=== PATIENT | female | born 1940 | race Caucasian/White ===

== ENCOUNTER → 2017-09-05 | Outpatient (CLI) | payer MEDICARE | LOC: COL.VAS 10:35 | DX: I73.9 Peripheral vascular disease, unspecified (principal); L97.521 Non-pressure chronic ulcer of other part of left foot limited to breakdown of skin ==

== ENCOUNTER → 2017-10-18 | Outpatient (CLI) | payer MEDICARE, OTHER | LOC: COL.LAB 08:14 | DX: G60.9 Hereditary and idiopathic neuropathy, unspecified (principal) ==

== ENCOUNTER → 2017-10-24 | Outpatient (CLI) | payer MEDICARE, OTHER ==
[2017-10-24 11:51] LABS: FASTING GLUCOSE 106 mg/dL (70-110)
[2017-10-24 11:52] LABS: 1 HR GLUCOSE 204 mg/dL (90-160)
== END ==
LOC: COL.LAB 08:25
PROVIDERS: Internal Medicine Interventional Cardiology
DX: G60.9 Hereditary and idiopathic neuropathy, unspecified (principal)

== ENCOUNTER → 2017-11-14 | Outpatient (CLI) | payer MEDICARE, OTHER | LOC: COL.RAD 09:10 | DX: Z11.1 Encounter for screening for respiratory tuberculosis (principal); J84.10 Pulmonary fibrosis, unspecified ==

== ENCOUNTER → 2017-12-25 | Outpatient (CLI) | payer MEDICARE, OTHER ==
[2017-12-25 11:48] LABS: MEAN CELL VOLUME 103 fl (80.0-100.0); MEAN CORPUSCULAR HEMOGLOBIN 32 pg (27.0-31.0); MEAN CORPUSCULAR HGB CONC 31 g/dl (33.0-37.0); MEAN PLATELET VOLUME 11.2 fl (7.4-10.4); PLATELET COUNT 187 K/mm3 (130-400); RED BLOOD COUNT 3.41 M/mm3 (4.10-5.30); REDCELL DISTRIBUTION WIDTH-CV 12.8 % (11.5-14.5)
[2017-12-25 11:49] LABS: HEMATOCRIT 35.2 % (37.0-47.0)
[2017-12-25 11:53] LABS: CALCIUM 8.9 mg/dL (8.4-10.2)
[2017-12-25 11:59] LABS: CREATININE, serum 4.79 mg/dL (0.52-1.25)
== END ==
LOC: COL.LAB 11:12
PROVIDERS: Internal Medicine Interventional Cardiology
DX: I73.9 Peripheral vascular disease, unspecified (principal)

== ENCOUNTER → 2018-01-02 | Outpatient (CLI) | payer MEDICARE, OTHER | LOC: COL.RAD 13:49 | DX: M19.032 Primary osteoarthritis, left wrist (principal); I61.9 Nontraumatic intracerebral hemorrhage, unspecified; M81.0 Age-related osteoporosis without current pathological fracture; G31.9 Degenerative disease of nervous system, unspecified; I67.82 Cerebral ischemia; S00.03XA Contusion of scalp, initial encounter; W19.XXXA Unspecified fall, initial encounter ==

== ENCOUNTER → 2018-01-21 | Outpatient (CLI) | payer MEDICARE, OTHER | LOC: COL.LAB 15:16 | DX: G64 Other disorders of peripheral nervous system (principal) ==

== ENCOUNTER → 2018-01-28 | Outpatient (CLI) | payer MEDICARE, OTHER | LOC: COL.VAS 13:55 | DX: I65.22 Occlusion and stenosis of left carotid artery (principal); Z98.1 Arthrodesis status ==

== ENCOUNTER 2018-02-20 08:00 | Outpatient (RCR) | payer MEDICARE ==
[2018-02-20] VITALS (11 sets, daily range): BP systolic 80–125; BP diastolic 35–87; PULSE 67–92; TEMP 97.2–97.9
[~2018-02-20] VITALS: Ht 167.6 cm; Wt 96.2 kg
[2018-02-20] MEDS ORDERED: NEURONTIN300 MG/CAP PO (13:24)
[2018-02-20] MEDS ORDERED: ZYLOPRIM 100MG100 MG PO (13:25)
[2018-02-20] MEDS ORDERED: PLAVIX 75MG TAB75 MG PO (13:26)
[2018-02-20] MEDS ORDERED: ASPIRIN E.C. 8181 MG PO (13:27)
[2018-02-20] MEDS ORDERED: TURMERIC500 MG PO (13:28)
[2018-02-20] MEDS ORDERED: LIPITOR 80MG80 MG PO (13:28)
[2018-02-20] MEDS ORDERED: MASON NATURAL2000 IU (13:29)
[2018-02-20] MEDS ORDERED: ELIQUIS 2.5 PO (13:31)
== END 2018-02-20 16:07 | disposition home or self-care (01) ==
LOC: EUO 08:00
DX: D64.9 Anemia, unspecified (principal)
CPT/HCPCS: J7050; P9016

== ENCOUNTER 2018-03-03 12:25 | Inpatient (IN) | payer MEDICARE, OTHER ==
[~2018-03-03] VITALS: Ht 167.6 cm; Wt 98.7 kg
[2018-03-03] VITALS (11 sets, daily range): BP systolic 125–167; BP diastolic 47–90; PULSE 10–114; TEMP 97.3–99
[~2018-03-03 12:25] MED LIST: ASPIRIN E.C. 8181 MG PO; ELIQUIS 2.5 PO; LIPITOR 80MG80 MG PO; MASON NATURAL2000 IU; NEURONTIN300 MG/CAP PO; PLAVIX 75MG TAB75 MG PO; TURMERIC500 MG PO; ZYLOPRIM 100MG100 MG PO
[2018-03-03 13:04] LABS: ALBUMIN 3.3 gm/dL (3.5-5.0); BILIRUBIN,TOTAL 0.5 mg/dL (0.0-1.0); CALCIUM 8.9 mg/dL (8.4-10.2); POTASSIUM 4.3 mmol/L (3.4-5.0); TOTAL PROTEIN 5.9 gm/dL (6.4-8.2)
[2018-03-03 13:06] LABS: BASO % 0.2 % (0.0-2.0); EOS # 0.2 (0.0-0.7); EOS % 1.6 % (0-4.0); GRAN # 10.8 (1.4-6.5); GRAN % 86.5 % (42.2-75.2); LYMPH # 0.7 (1.2-3.4); LYMPH % 5.5 % (20.0-51.0); MEAN CELL VOLUME 116 fl (80.0-100.0); MEAN CORPUSCULAR HGB CONC 30 g/dl (33.0-37.0); MEAN PLATELET VOLUME 11.1 fl (7.4-10.4); MONO # 0.7 (0.1-0.6); MONO % 5.6 % (1.7-9.3); PLATELET COUNT 252 K/mm3 (130-400); RED BLOOD COUNT 2.02 M/mm3 (4.10-5.30); REDCELL DISTRIBUTION WIDTH-CV 16.2 % (11.5-14.5)
[2018-03-03 13:08] LABS: CREATININE, serum 4.71 mg/dL (0.52-1.25)
[2018-03-03 13:09] LABS: HEMATOCRIT 23.4 % (37.0-47.0); HEMOGLOBIN 7.1 g/dl (12.5-16.0); MEAN CORPUSCULAR HEMOGLOBIN 35 pg (27.0-31.0)
[2018-03-03 13:16] LABS: TROPONIN-I 0.034 ng/mL (0.000-0.034)
[2018-03-04 00:21] LABS: HEMATOCRIT 24.1 % (37.0-47.0)
[2018-03-04 03:18] VITALS: BP 102/44; BP 149/85; PULSE 70; PULSE 83; TEMP 98.7
[2018-03-04 06:38] LABS: BASO % 0.3 % (0.0-2.0); EOS # 0.3 (0.0-0.7); EOS % 2.7 % (0-4.0); GRAN % 80.7 % (42.2-75.2); LYMPH # 0.9 (1.2-3.4); LYMPH % 8.2 % (20.0-51.0); MEAN CORPUSCULAR HGB CONC 31 g/dl (33.0-37.0); MEAN PLATELET VOLUME 11.2 fl (7.4-10.4); MONO # 0.9 (0.1-0.6); MONO % 7.7 % (1.7-9.3); PLATELET COUNT 207 K/mm3 (130-400); RED BLOOD COUNT 2.17 M/mm3 (4.10-5.30)
[2018-03-04 06:43] LABS: CALCIUM 8.9 mg/dL (8.4-10.2); POTASSIUM 4.2 mmol/L (3.4-5.0)
[2018-03-04 06:47] LABS: HEMATOCRIT 23.9 % (37.0-47.0); HEMOGLOBIN 7.5 g/dl (12.5-16.0); MEAN CELL VOLUME 110 fl (80.0-100.0); MEAN CORPUSCULAR HEMOGLOBIN 35 pg (27.0-31.0)
[2018-03-04 06:56] LABS: CREATININE, serum 4.77 mg/dL (0.52-1.25)
[2018-03-04 07:23] VITALS: BP 136/56; PULSE 71; TEMP 98.2
[2018-03-04 12:30] VITALS: BP 130/64; PULSE 86; TEMP 98
[2018-03-04 17:01] VITALS: BP 112/53; PULSE 68; TEMP 98
[2018-03-04 20:20] VITALS: BP 122/38; PULSE 80; TEMP 98.6
[2018-03-05] VITALS (10 sets, daily range): BP systolic 91–150; BP diastolic 39–68; PULSE 71–93; TEMP 97.6–98.9
[2018-03-05 06:28] LABS: INR 1.3 (0.8-3.0); PROTHROMBIN TIME 14.3 SECONDS (9.7-12.8)
[2018-03-05 10:24] LABS: HEMATOCRIT 23.4 % (37.0-47.0); HEMOGLOBIN 7.3 g/dl (12.5-16.0)
[2018-03-05 10:29] LABS: CALCIUM 8.4 mg/dL (8.4-10.2); CREATININE, serum 3.37 mg/dL (0.52-1.25); POTASSIUM 4.1 mmol/L (3.4-5.0)
[2018-03-05 17:16] LABS: HEMATOCRIT 29.9 % (37.0-47.0); HEMOGLOBIN 9.4 g/dl (12.5-16.0)
[2018-03-06 01:24] VITALS: BP 127/46; PULSE 71; TEMP 98.2
[2018-03-06 04:29] VITALS: BP 126/46; PULSE 71; TEMP 97.7
[2018-03-06 07:24] VITALS: BP 133/44; PULSE 64; TEMP 97.9
== END 2018-03-06 12:00 | disposition home health service (06) | DRG 377 ==
LOC: COL.ER 12:25 → MEDICAL 14:01
PROVIDERS: Emergency Medicine; Internal Medicine; Internal Medicine Gastroenterology
PROC: 0DBK8ZX Excision of Ascending Colon, Via Natural or Artificial Opening Endoscopic, Diagnostic (ICD-10-PCS; 2018-03-04)
PROC: 0DBL8ZX Excision of Transverse Colon, Via Natural or Artificial Opening Endoscopic, Diagnostic (ICD-10-PCS; 2018-03-04)
PROC: 0DJ08ZZ Inspection of Upper Intestinal Tract, Via Natural or Artificial Opening Endoscopic (ICD-10-PCS; 2018-03-04 17:00)
PROC: 5A1D70Z Performance of Urinary Filtration, Intermittent, Less than 6 Hours Per Day (ICD-10-PCS; principal; 2018-03-05)
DX: K92.2 Gastrointestinal hemorrhage, unspecified (principal); N18.6 End stage renal disease; D50.0 Iron deficiency anemia secondary to blood loss (chronic); Z99.2 Dependence on renal dialysis; E78.5 Hyperlipidemia, unspecified; M10.9 Gout, unspecified; E11.22 Type 2 diabetes mellitus with diabetic chronic kidney disease; R53.1 Weakness; R74.8 Abnormal levels of other serum enzymes; D12.2 Benign neoplasm of ascending colon; D12.3 Benign neoplasm of transverse colon; K57.30 Diverticulosis of large intestine without perforation or abscess without bleeding
CPT/HCPCS: J2704; J7030; P9016

== ENCOUNTER → 2018-03-20 | Outpatient (CLI) | payer MEDICARE, OTHER ==
[~2018-03-20] MED LIST changes: +AMOXICILLIN 8751 TAB PO
[2018-03-20 11:30] LABS: GLUCOSE 99 mg/dL (74-106)
[2018-03-20 12:32] LABS: 2 HR GLUCOSE 216 mg/dL (70-110)
== END ==
LOC: COL.LAB 08:18
PROVIDERS: Family Medicine
DX: Z13.1 Encounter for screening for diabetes mellitus (principal); E53.8 Deficiency of other specified B group vitamins

== ENCOUNTER 2018-03-24 12:47 | Inpatient (IN) | payer MEDICARE, OTHER ==
[2018-03-24] VITALS (93 sets, daily range): BP systolic 121–127; BP diastolic 62–68; PULSE 71–85; TEMP 97.7; O2SAT 53–99
[~2018-03-24] VITALS: Ht 167.6 cm; Wt 95.2 kg
[~2018-03-24 12:47] MED LIST changes: -AMOXICILLIN 8751 TAB PO
[2018-03-24 13:15] LABS: HEMOGLOBIN 10.9 g/dl (12.5-16.0); MEAN CELL VOLUME 105 fl (80.0-100.0); MEAN CORPUSCULAR HEMOGLOBIN 33 pg (27.0-31.0); MEAN CORPUSCULAR HGB CONC 31 g/dl (33.0-37.0); MEAN PLATELET VOLUME 11.5 fl (7.4-10.4); PLATELET COUNT 209 K/mm3 (130-400); RED BLOOD COUNT 3.34 M/mm3 (4.10-5.30); REDCELL DISTRIBUTION WIDTH-CV 15.4 % (11.5-14.5)
[2018-03-24 13:27] LABS: ALBUMIN 3.5 gm/dL (3.5-5.0); BILIRUBIN,TOTAL 0.7 mg/dL (0.0-1.0); CALCIUM 9.6 mg/dL (8.4-10.2); MAGNESIUM 1.6 mg/dL (1.6-2.3); PHOSPHOROUS 0.8 mg/dL (2.5-4.5); POTASSIUM 3.9 mmol/L (3.4-5.0); TOTAL PROTEIN 6.3 gm/dL (6.4-8.2)
[2018-03-24 13:28] LABS: ARTERIAL BLD GAS O2 SATURATION 90.3 % (92-100); ARTERIAL BLD GAS TCO2 CT 22.4; ARTERIAL BLOOD GAS BASE EXCESS -4.3 (-2-2); ARTERIAL BLOOD GAS HCO3 21.2 meq/L (22-26); ARTERIAL BLOOD GAS PCO2 40.4 mmHg (35-45); ARTERIAL BLOOD GAS PO2 64.3 mmHg (80-100); ARTERIAL BLOOD GAS pH 7.34 (7.35-7.45)
[2018-03-24 13:34] LABS: HEMATOCRIT 35.1 % (37.0-47.0)
[2018-03-24 13:45] LABS: CREATININE, serum 4.49 mg/dL (0.52-1.25); TROPONIN-I 1.45 ng/mL (0.000-0.034)
[2018-03-24] MEDS ORDERED: AMOXICILLIN 8751 TAB PO ×2 (13:51)
[2018-03-24 13:58] LABS: BAND 22 % (0-10); LYMPHOCYTE 2 % (20.0-51.0); NEUTROPHILS 74 % (42.0-75.2)
[2018-03-24 13:59] LABS: PLATELET ESTIMATE NORMAL (NORMAL)
[2018-03-24 14:01] LABS: CREATINE KINASE 204 U/L (30-135)
[2018-03-24 14:02] LABS: HYPOCHROMIA 1+
[2018-03-24 14:10] LABS: COLLECTION METHOD CLEAN CATCH
[2018-03-24 14:21] LABS: MUCOUS Present /lpf; PH 5 (5-8); URINE APPEARANCE Clear; URINE BACTERIA None Seen /hpf; URINE BILIRUBIN Negative (NEGATIVE); URINE BLOOD Negative (NEGATIVE); URINE COLOR Yellow; URINE GLUCOSE Negative (NEGATIVE); URINE KETONE Negative (NEGATIVE); URINE LEUKOCYTE ESTERASE Negative (NEGATIVE); URINE NITRATE Negative (NEGATIVE); URINE PROTEIN(semi-quant) 2+ (NEGATIVE); URINE RBC None Seen /hpf; URINE UROBILINOGEN Negative (NEGATIVE)
[2018-03-25] VITALS (378 sets, daily range): BP systolic 105–125; BP diastolic 31–90; PULSE 70–85; TEMP 97.6–99.1; O2SAT 44–100
[2018-03-25 07:27] LABS: MEAN CELL VOLUME 106 fl (80.0-100.0); MEAN CORPUSCULAR HGB CONC 31 g/dl (33.0-37.0); MEAN PLATELET VOLUME 11.5 fl (7.4-10.4); PLATELET COUNT 149 K/mm3 (130-400); RED BLOOD COUNT 3.01 M/mm3 (4.10-5.30)
[2018-03-25 07:30] LABS: BILIRUBIN,TOTAL 0.6 mg/dL (0.0-1.0); CALCIUM 9.1 mg/dL (8.4-10.2); HEMATOCRIT 31.8 % (37.0-47.0); HEMOGLOBIN 9.8 g/dl (12.5-16.0); MEAN CORPUSCULAR HEMOGLOBIN 33 pg (27.0-31.0); POTASSIUM 4.9 mmol/L (3.4-5.0); TOTAL PROTEIN 5.6 gm/dL (6.4-8.2)
[2018-03-25 07:38] LABS: CREATININE, serum 4.61 mg/dL (0.52-1.25)
[2018-03-25 07:55] LABS: BAND 16 % (0-10); NEUTROPHILS 78 % (42.0-75.2)
[2018-03-25 07:59] LABS: PLATELET ESTIMATE NORMAL (NORMAL)
[2018-03-25 08:01] LABS: ANISOCYTOSIS 1+
[2018-03-26 00:11] VITALS: BP 136/47
[2018-03-26 04:05] VITALS: BP 110/44; PULSE 67; TEMP 97.8
[2018-03-26 06:28] LABS: BASO # 0.1 (0.0-0.2); BASO % 0.5 % (0.0-2.0); EOS # 0.5 (0.0-0.7); GRAN # 9.7 (1.4-6.5); GRAN % 81.2 % (42.2-75.2); LYMPH # 0.9 (1.2-3.4); LYMPH % 7.6 % (20.0-51.0); MEAN CELL VOLUME 105 fl (80.0-100.0); MEAN CORPUSCULAR HEMOGLOBIN 33 pg (27.0-31.0); MEAN CORPUSCULAR HGB CONC 31 g/dl (33.0-37.0); MEAN PLATELET VOLUME 11.8 fl (7.4-10.4); MONO # 0.8 (0.1-0.6); MONO % 6.4 % (1.7-9.3); PLATELET COUNT 169 K/mm3 (130-400); RED BLOOD COUNT 3.04 M/mm3 (4.10-5.30)
[2018-03-26 06:30] LABS: HEMATOCRIT 31.9 % (37.0-47.0)
[2018-03-26 06:36] LABS: BILIRUBIN,TOTAL 0.4 mg/dL (0.0-1.0); CALCIUM 8.9 mg/dL (8.4-10.2); CREATININE, serum 3.76 mg/dL (0.52-1.25); POTASSIUM 4.5 mmol/L (3.4-5.0); TOTAL PROTEIN 5.8 gm/dL (6.4-8.2)
[2018-03-26 08:06] VITALS: BP 136/34; PULSE 64; TEMP 97.8
[2018-03-26 11:44] VITALS: BP 107/49; PULSE 75; TEMP 98.5
[2018-03-26 15:22] VITALS: BP 107/49; PULSE 98; TEMP 97.7
[2018-03-26 20:20] VITALS: BP 130/56; PULSE 84; TEMP 98.2
[2018-03-27 00:17] VITALS: BP 143/67; PULSE 74; TEMP 98
[2018-03-27 03:38] VITALS: BP 128/53; PULSE 80; TEMP 97.9
[2018-03-27 06:00] LABS: BASO # 0.1 (0.0-0.2); BASO % 0.6 % (0.0-2.0); EOS # 0.5 (0.0-0.7); EOS % 5.8 % (0-4.0); GRAN % 72.3 % (42.2-75.2); LYMPH % 11.6 % (20.0-51.0); MEAN CELL VOLUME 102 fl (80.0-100.0); MEAN CORPUSCULAR HGB CONC 32 g/dl (33.0-37.0); MEAN PLATELET VOLUME 11.6 fl (7.4-10.4); MONO # 0.8 (0.1-0.6); MONO % 9.2 % (1.7-9.3); PLATELET COUNT 170 K/mm3 (130-400); RED BLOOD COUNT 3.03 M/mm3 (4.10-5.30)
[2018-03-27 06:07] LABS: HEMATOCRIT 30.9 % (37.0-47.0); HEMOGLOBIN 9.9 g/dl (12.5-16.0); MEAN CORPUSCULAR HEMOGLOBIN 33 pg (27.0-31.0)
[2018-03-27 06:31] LABS: ALBUMIN 3.1 gm/dL (3.5-5.0); BILIRUBIN,TOTAL 0.3 mg/dL (0.0-1.0); CALCIUM 8.7 mg/dL (8.4-10.2); POTASSIUM 4.4 mmol/L (3.4-5.0); TOTAL PROTEIN 5.8 gm/dL (6.4-8.2)
[2018-03-27 06:53] LABS: CREATININE, serum 4.43 mg/dL (0.52-1.25)
[2018-03-27 12:06] VITALS: BP 152/70; PULSE 80; TEMP 98.4
[2018-03-27 15:22] VITALS: BP 136/56; PULSE 82; TEMP 84
[2018-03-27 19:37] VITALS: BP 127/56; PULSE 78; TEMP 98.8
[2018-03-27 23:47] VITALS: BP 110/37; PULSE 85; TEMP 98
[2018-03-28 03:40] VITALS: BP 123/56; PULSE 78; TEMP 97.8
[2018-03-28 06:10] LABS: BASO # 0.1 (0.0-0.2); BASO % 0.8 % (0.0-2.0); EOS # 0.5 (0.0-0.7); EOS % 5.2 % (0-4.0); GRAN # 6.4 (1.4-6.5); GRAN % 69.7 % (42.2-75.2); HEMOGLOBIN 10.6 g/dl (12.5-16.0); LYMPH # 1.3 (1.2-3.4); LYMPH % 14.2 % (20.0-51.0); MEAN CELL VOLUME 102 fl (80.0-100.0); MEAN CORPUSCULAR HEMOGLOBIN 32 pg (27.0-31.0); MEAN CORPUSCULAR HGB CONC 31 g/dl (33.0-37.0); MEAN PLATELET VOLUME 11.5 fl (7.4-10.4); MONO # 0.8 (0.1-0.6); MONO % 9.1 % (1.7-9.3); PLATELET COUNT 190 K/mm3 (130-400); RED BLOOD COUNT 3.32 M/mm3 (4.10-5.30); REDCELL DISTRIBUTION WIDTH-CV 14.9 % (11.5-14.5)
[2018-03-28 06:13] LABS: HEMATOCRIT 33.9 % (37.0-47.0)
[2018-03-28 06:24] LABS: ALBUMIN 3.2 gm/dL (3.5-5.0); BILIRUBIN,TOTAL 0.4 mg/dL (0.0-1.0); CALCIUM 8.9 mg/dL (8.4-10.2); CREATININE, serum 3.62 mg/dL (0.52-1.25); PHOSPHOROUS 3.6 mg/dL (2.5-4.5); POTASSIUM 3.8 mmol/L (3.4-5.0)
[2018-03-28 08:03] VITALS: BP 131/59; PULSE 83; TEMP 98.4
[2018-03-28] MEDS ORDERED: LEVAQUIN 5500 MG/TA1 PO (10:38)
[2018-03-28] MEDS ORDERED: FOLIC ACID 11 MG/TA1 PO (10:39)
[2018-03-28 12:42] LABS: LAMDA FREE LIGHT CHAIN SERUM 7.01 mg/dL (())
== END 2018-03-28 15:10 | disposition home or self-care (01) | DRG 871 ==
LOC: COL.ER 12:47 → ICU 14:27 → MEDICAL 03-25 11:46
PROVIDERS: Emergency Medicine; Internal Medicine Nephrology
PROC: 5A1D70Z Performance of Urinary Filtration, Intermittent, Less than 6 Hours Per Day (ICD-10-PCS; principal; 2018-03-25)
PROC: 5A1D70Z Performance of Urinary Filtration, Intermittent, Less than 6 Hours Per Day (ICD-10-PCS; 2018-03-27)
PROC: 5A1D70Z Performance of Urinary Filtration, Intermittent, Less than 6 Hours Per Day (ICD-10-PCS; 2018-03-28)
DX: A41.9 Sepsis, unspecified organism (principal); N18.6 End stage renal disease; I21.A1 Myocardial infarction type 2; R65.21 Severe sepsis with septic shock; I12.0 Hypertensive chronic kidney disease with stage 5 chronic kidney disease or end stage renal disease; E87.2 Acidosis; E11.621 Type 2 diabetes mellitus with foot ulcer; B95.2 Enterococcus as the cause of diseases classified elsewhere; L97.529 Non-pressure chronic ulcer of other part of left foot with unspecified severity; E11.22 Type 2 diabetes mellitus with diabetic chronic kidney disease; Z99.2 Dependence on renal dialysis; E78.5 Hyperlipidemia, unspecified; E11.36 Type 2 diabetes mellitus with diabetic cataract; Z87.891 Personal history of nicotine dependence; D63.1 Anemia in chronic kidney disease; I27.20 Pulmonary hypertension, unspecified
CPT/HCPCS: J1956; J2543; J3370; J7040; J7050

== ENCOUNTER → 2018-04-24 | Outpatient (CLI) | payer MEDICARE, OTHER ==
[~2018-04-24] MED LIST changes: +AMOXICILLIN 8751 TAB PO; +FOLIC ACID 11 MG/TA1 PO; +LEVAQUIN 5500 MG/TA1 PO
== END ==
LOC: COL.RAD 09:42
DX: M19.012 Primary osteoarthritis, left shoulder (principal)

== ENCOUNTER → 2018-05-27 | Outpatient (CLI) | payer MEDICARE | LOC: COL.RAD 09:39 | DX: I65.23 Occlusion and stenosis of bilateral carotid arteries (principal); I65.02 Occlusion and stenosis of left vertebral artery; G31.9 Degenerative disease of nervous system, unspecified; I67.82 Cerebral ischemia; I63.81 Other cerebral infarction due to occlusion or stenosis of small artery; M47.812 Spondylosis without myelopathy or radiculopathy, cervical region; M43.12 Spondylolisthesis, cervical region; Z98.890 Other specified postprocedural states | CPT/HCPCS: Q9967 ==

== ENCOUNTER → 2018-07-10 | Outpatient (CLI) | payer MEDICARE | LOC: COL.RAD 08:00 | DX: G31.9 Degenerative disease of nervous system, unspecified (principal); I67.82 Cerebral ischemia; I65.02 Occlusion and stenosis of left vertebral artery; I65.22 Occlusion and stenosis of left carotid artery; I70.8 Atherosclerosis of other arteries | CPT/HCPCS: Q9967 ==

== ENCOUNTER 2018-07-23 22:20 | Emergency (ER) | payer MEDICARE ==
[~2018-07-23] VITALS: Ht 167.6 cm; Wt 93.2 kg
[2018-07-23 22:50] LABS: BASO # 0.1 (0.0-0.2); EOS # 0.2 (0.0-0.7); EOS % 3.4 % (0-4.0); GRAN # 4.3 (1.4-6.5); GRAN % 70.5 % (42.2-75.2); HEMOGLOBIN 11.1 g/dl (12.5-16.0); LYMPH # 0.8 (1.2-3.4); LYMPH % 12.4 % (20.0-51.0); MEAN CELL VOLUME 104 fl (80.0-100.0); MEAN CORPUSCULAR HEMOGLOBIN 32 pg (27.0-31.0); MEAN CORPUSCULAR HGB CONC 31 g/dl (33.0-37.0); MEAN PLATELET VOLUME 11.7 fl (7.4-10.4); MONO # 0.8 (0.1-0.6); MONO % 12.2 % (1.7-9.3); PLATELET COUNT 146 K/mm3 (130-400); RED BLOOD COUNT 3.43 M/mm3 (4.10-5.30); REDCELL DISTRIBUTION WIDTH-CV 14.6 % (11.5-14.5)
[2018-07-23 22:51] LABS: HEMATOCRIT 35.6 % (37.0-47.0)
[2018-07-23 22:56] LABS: ALBUMIN 3.5 gm/dL (3.5-5.0); BILIRUBIN,TOTAL 0.7 mg/dL (0.0-1.0); CALCIUM 9.1 mg/dL (8.4-10.2); CREATININE, serum 2.97 (0.52-1.25); MAGNESIUM 1.9 mg/dL (1.6-2.3); TOTAL PROTEIN 6.5 gm/dL (6.4-8.2)
[2018-07-24 00:35] VITALS: BP 124/76; PULSE 90; TEMP 97.9
== END 2018-07-24 00:35 | disposition short-term general hospital (02) ==
LOC: COL.ER 22:20
PROVIDERS: Emergency Medicine
DX: R09.02 Hypoxemia (principal); R53.1 Weakness; I12.0 Hypertensive chronic kidney disease with stage 5 chronic kidney disease or end stage renal disease; E11.22 Type 2 diabetes mellitus with diabetic chronic kidney disease; N18.6 End stage renal disease; I73.9 Peripheral vascular disease, unspecified; Z99.2 Dependence on renal dialysis; Z79.02 Long term (current) use of antithrombotics/antiplatelets; Z79.82 Long term (current) use of aspirin

== ENCOUNTER → 2018-12-15 | Outpatient (CLI) | payer MEDICARE, OTHER | LOC: COL.RAD 10:42 | DX: S92.415A Nondisplaced fracture of proximal phalanx of left great toe, initial encounter for closed fracture (principal) ==

== ENCOUNTER 2019-02-05 21:52 | Inpatient (IN) | payer MEDICARE ==
[~2019-02-05] VITALS: Ht 167.6 cm; Wt 97.3 kg
[2019-02-05 22:20] LABS: BASO # 0.1 (0.0-0.2); BASO % 0.5 % (0.0-2.0); EOS # 0.4 (0.0-0.7); EOS % 2.4 % (0-4.0); GRAN # 12.5 (1.4-6.5); GRAN % 85.9 % (42.2-75.2); HEMOGLOBIN 11.4 g/dl (12.5-16.0); LYMPH # 0.9 (1.2-3.4); MEAN CELL VOLUME 104 fl (80.0-100.0); MEAN CORPUSCULAR HEMOGLOBIN 32 pg (27.0-31.0); MEAN CORPUSCULAR HGB CONC 31 g/dl (33.0-37.0); MEAN PLATELET VOLUME 10.7 fl (7.4-10.4); MONO # 0.7 (0.1-0.6); MONO % 4.7 % (1.7-9.3); PLATELET COUNT 197 K/mm3 (130-400); RED BLOOD COUNT 3.54 M/mm3 (4.10-5.30); REDCELL DISTRIBUTION WIDTH-CV 12.6 % (11.5-14.5)
[2019-02-05 22:21] LABS: HEMATOCRIT 36.7 % (37.0-47.0)
[2019-02-05 22:27] LABS: ALBUMIN 3.8 gm/dL (3.5-5.0); BILIRUBIN,TOTAL 0.3 mg/dL (0.0-1.0); POTASSIUM 4.5 mmol/L (3.4-5.0); TOTAL PROTEIN 6.8 gm/dL (6.4-8.2)
[2019-02-05 22:31] LABS: CREATININE, serum 4.56 (0.52-1.25)
--- NOTE | 2019-02-06 00:25 | NUR ---
Recieved from ED per cart, 78y/o female with ESRD and fluid overload. Was unable to move herself from cart to bed, slide board was used. Has SL to right AC without redness or swelling. Has an AV fistula to left upper arm with bruit noted. Has a dry drsg to left groin, mild bruising around area post angiogram on 02/05/19. Snack provided.
--- NOTE | 2019-02-06 00:45 | NUR ---
Spoke with DR RAMIREZ regarding patient. New orders for FR 1500cc/24hr, Dialysis diet and okayed home meds.
[2019-02-06 00:49] VITALS: BP 102/38; PULSE 86; TEMP 97.6
--- NOTE | 2019-02-06 01:15 | NUR ---
Takes meds without problem. Has finished sandwich and applesauce. Ready for sleep.
[2019-02-06 04:00] VITALS: BP 93/43; PULSE 98; TEMP 98.2
--- NOTE | 2019-02-06 04:45 | NUR ---
ASSISTED TO BATHROOM WITH 1 STAFF MEMBER. GAIT SLOW AND STEADY. UNABLE TO URINATE AT THIS TIME. BACK TO BED WITH MINIMAL ASSIST. IS TO HAVE DIALYSIS THIS AM.
[2019-02-06 07:16] VITALS: BP 108/42; PULSE 88; TEMP 97.8
--- NOTE | 2019-02-06 08:20 | NUR ---
PATIENT GOING DOWN TO DIALYSIS.
--- NOTE | 2019-02-06 09:53 | NUR ---
Several visit attempts; Mandrel Puller left card letting patient know of the availability of [facility] at [place].
[2019-02-06 12:47] VITALS: BP 137/74; PULSE 83; TEMP 97.6
--- NOTE | 2019-02-06 13:00 | NUR ---
PATIENT BACK IN ROOM FROM DIALYSIS.
--- NOTE | 2019-02-06 13:27 | NUR ---
Checkerer Hand met with the patient to complete initial intake and discuss discharge planning. Patient's brother, Codey (ph#[phone]) was also present and states he lives just about 3 blocks away from patient. Patient lives alone in [place]. Patient sees Dr. Lowe for primary care and has her medications delivered to her home from [facility]. Patient reports independence with ADLS and has a walker at home to use as needed. Patient states she has Advance Directives in place and Codey is her DPOA-HC. Patient states she wants to return home upon discharge and has no concerns in doing so. No additional concerns at this time.
--- NOTE | 2019-02-06 13:42 | NUR ---
Patient sitting in bed watching tv, drinking a cup of coffee. Patient ate 100% of lunch. INT to Right AC remains CDI. Pain states no pain. Patient voices no other needs or concerns at this time. Reported off to KAITLIN Gudino.
[2019-02-06 16:33] VITALS: BP 104/37; PULSE 94; TEMP 97.7
--- NOTE | 2019-02-06 19:41 | NUR ---
IV SITE ACCIDENTALLY DC'D, DOES NOT WANT RESTART. DR ASHLEY MALONE DC OF TELEMETRY AND SALINE LOCK.
[2019-02-06 20:00] VITALS: BP 138/33; PULSE 93; TEMP 98.4
--- NOTE | 2019-02-06 21:00 | NUR ---
TAKES HS MEDS WITHOUT PROBLEM. NO COUGH NOTED, DID EXPLAIN TO PATIENT OF NEED FOR SPUTUM IF SHE COUGHS UP ANY MUCUS. PT VERBALIZED UNDERSTANDING.
[2019-02-07] VITALS (7 sets, daily range): BP systolic 104–148; BP diastolic 36–90; PULSE 78–98; TEMP 97.6–98.4
--- NOTE | 2019-02-07 05:28 | NUR ---
NO COUGH NOTED THIS SHIFT.
[2019-02-07 06:48] LABS: BASO # 0.1 (0.0-0.2); BASO % 0.5 % (0.0-2.0); EOS # 0.5 (0.0-0.7); EOS % 4.7 % (0-4.0); GRAN # 7.8 (1.4-6.5); HEMOGLOBIN 10.3 g/dl (12.5-16.0); LYMPH # 1.7 (1.2-3.4); LYMPH % 15.6 % (20.0-51.0); MEAN CELL VOLUME 102 fl (80.0-100.0); MEAN CORPUSCULAR HEMOGLOBIN 32 pg (27.0-31.0); MEAN CORPUSCULAR HGB CONC 31 g/dl (33.0-37.0); MEAN PLATELET VOLUME 11.4 fl (7.4-10.4); MONO % 8.6 % (1.7-9.3); PLATELET COUNT 163 K/mm3 (130-400); RED BLOOD COUNT 3.23 M/mm3 (4.10-5.30); REDCELL DISTRIBUTION WIDTH-CV 12.5 % (11.5-14.5)
[2019-02-07 06:55] LABS: ALBUMIN 3.5 gm/dL (3.5-5.0); CALCIUM 9.3 mg/dL (8.4-10.2); PHOSPHOROUS 4.3 mg/dL (2.5-4.5); POTASSIUM 4.4 mmol/L (3.4-5.0)
[2019-02-07 06:56] LABS: CREATININE, serum 4.17 (0.52-1.25)
[2019-02-07 07:19] LABS: HEMATOCRIT 32.8 % (37.0-47.0)
--- NOTE | 2019-02-07 08:00 | NUR ---
SEE MORNING ASSESSMENT.
--- NOTE | 2019-02-07 19:05 | NUR ---
REPORT GIVEN TO KAITLIN SIMMONS.
[2019-02-08 04:00] VITALS: BP 141/74; PULSE 72; TEMP 98.2
[2019-02-08 06:54] LABS: BASO # 0.1 (0.0-0.2); BASO % 0.7 % (0.0-2.0); EOS # 0.5 (0.0-0.7); EOS % 5.3 % (0-4.0); GRAN # 7.4 (1.4-6.5); GRAN % 73.1 % (42.2-75.2); HEMOGLOBIN 10.1 g/dl (12.5-16.0); LYMPH # 1.3 (1.2-3.4); LYMPH % 13.2 % (20.0-51.0); MEAN CELL VOLUME 101 fl (80.0-100.0); MEAN CORPUSCULAR HEMOGLOBIN 32 pg (27.0-31.0); MEAN CORPUSCULAR HGB CONC 32 g/dl (33.0-37.0); MEAN PLATELET VOLUME 11.3 fl (7.4-10.4); MONO # 0.7 (0.1-0.6); MONO % 7.1 % (1.7-9.3); PLATELET COUNT 161 K/mm3 (130-400); RED BLOOD COUNT 3.14 M/mm3 (4.10-5.30); REDCELL DISTRIBUTION WIDTH-CV 12.5 % (11.5-14.5)
[2019-02-08 07:01] LABS: HEMATOCRIT 31.8 % (37.0-47.0)
[2019-02-08 07:07] LABS: ALBUMIN 3.4 gm/dL (3.5-5.0); CALCIUM 9.2 mg/dL (8.4-10.2); CREATININE, serum 5.7 (0.52-1.25); PHOSPHOROUS 5.1 mg/dL (2.5-4.5); POTASSIUM 4.5 mmol/L (3.4-5.0)
--- NOTE | 2019-02-08 07:11 | NUR ---
PT INDEPENDENT IN ROOM. NO N/V. NO c/o PAIN.
--- NOTE | 2019-02-08 08:00 | NUR ---
PATIENT IS SITTING UP IN THE CHAIR THIS MORNING. PATIENT IS A&OX4. BRADYCARDIA NOTED, OTHERWISE VSS. BOWEL SOUNDS ACTIVE ALL FOUR QUADRANTS. PATIENT TOLERATING DIET WITHOUT ANY COMPLAINTS OF N/V. UPPER LUNG LOBES CLEAR UPON AUSCULTATION. FINE CRACKLES AUSCULTATED OVER BILATERALLY LUNG BASES. PATIENT DENIES SOB OR A PRODUCTIVE COUGH. AV FISTULA TO LUE. SCABBING OVER FISTULA SITE NOTED. GOOD BRUIT AND THRILL OVER AV FISTULA SITE. STRONG RADIAL PULSES EQUAL BILATERALLY. NON-PITTING EDEMA TO BUE. POSITIVE PEDAL PULSES EQUAL BILATERALLY. PATIENT DENIES ANY PAIN. CALL LIGHT WITHIN REACH. PATIENT DENIES ANY OTHER NEEDS AT THIS TIME.
[2019-02-08 08:13] VITALS: BP 152/66; PULSE 58; TEMP 98.1
[2019-02-08 12:25] VITALS: BP 132/44; PULSE 78; TEMP 97.8
[2019-02-08 16:00] VITALS: BP 147/69; PULSE 77; TEMP 98
--- NOTE | 2019-02-08 19:30 | NUR ---
REPORT GIVEN TO KAITLIN CHURCH.
[2019-02-08 20:00] VITALS: BP 119/38; PULSE 91; TEMP 98.4
[2019-02-09] VITALS: BP 123/50; PULSE 83; TEMP 98.4
--- NOTE | 2019-02-09 02:48 | NUR ---
patient doing well tonight. denies pain or need for pain medication. significant bruising noted to angiogram site. patient requested dressing to be changed, will relay this to morning shift. edema to bilateral upper extremities noted. patient ambulating independently in her room with the assistance of a walker. requested more xl briefs throughout night. see assessment. no further needs at this time. will continue to monitor.
[2019-02-09 04:00] VITALS: BP 131/60; PULSE 79; TEMP 98.1
[2019-02-09 07:06] LABS: BASO # 0.1 (0.0-0.2); BASO % 0.5 % (0.0-2.0); EOS # 0.5 (0.0-0.7); EOS % 4.5 % (0-4.0); GRAN # 8.3 (1.4-6.5); GRAN % 74.1 % (42.2-75.2); HEMOGLOBIN 10.2 g/dl (12.5-16.0); LYMPH # 1.5 (1.2-3.4); LYMPH % 13.1 % (20.0-51.0); MEAN CELL VOLUME 102 fl (80.0-100.0); MEAN CORPUSCULAR HEMOGLOBIN 32 pg (27.0-31.0); MEAN CORPUSCULAR HGB CONC 32 g/dl (33.0-37.0); MEAN PLATELET VOLUME 11.1 fl (7.4-10.4); MONO # 0.8 (0.1-0.6); MONO % 6.9 % (1.7-9.3); PLATELET COUNT 188 K/mm3 (130-400); RED BLOOD COUNT 3.17 M/mm3 (4.10-5.30); REDCELL DISTRIBUTION WIDTH-CV 12.5 % (11.5-14.5)
[2019-02-09 07:07] LABS: HEMATOCRIT 32.3 % (37.0-47.0)
[2019-02-09 07:25] VITALS: BP 143/53; PULSE 77; TEMP 97.9
[2019-02-09 07:28] LABS: ALBUMIN 3.6 gm/dL (3.5-5.0); PHOSPHOROUS 5.7 mg/dL (2.5-4.5); POTASSIUM 4.8 mmol/L (3.4-5.0)
[2019-02-09 07:39] LABS: CREATININE, serum 6.83 (0.52-1.25)
--- NOTE | 2019-02-09 08:15 | NUR ---
Patient in bed resting. Alert and oriented x 3. Shift assessment complete. Assisted patient to wheelchair, stand by assist with steady gait. Patient down to dialysis. Denies pain or further needs at this time.
[2019-02-09 12:23] VITALS: BP 126/49; PULSE 94; TEMP 97.4
--- NOTE | 2019-02-09 13:20 | NUR ---
Discharge education provided to patient. Educated on fluid restriction and follow up with dialysis. Denies pain or further needs at this time. Patient out by wheelchair with surgical staff and brother.
== END 2019-02-09 13:30 | disposition home or self-care (01) | DRG 640 ==
LOC: COL.ER 21:52 → SURG 22:49
PROVIDERS: Family Medicine; ADMIT Internal Medicine Nephrology
PROC: 5A1D70Z Performance of Urinary Filtration, Intermittent, Less than 6 Hours Per Day (ICD-10-PCS; principal; 2019-02-06)
DX: E87.70 Fluid overload, unspecified (principal); N18.6 End stage renal disease; I12.0 Hypertensive chronic kidney disease with stage 5 chronic kidney disease or end stage renal disease; Z99.2 Dependence on renal dialysis; E11.22 Type 2 diabetes mellitus with diabetic chronic kidney disease; E11.51 Type 2 diabetes mellitus with diabetic peripheral angiopathy without gangrene; E78.5 Hyperlipidemia, unspecified; E11.621 Type 2 diabetes mellitus with foot ulcer; M10.9 Gout, unspecified; E55.9 Vitamin D deficiency, unspecified; E11.42 Type 2 diabetes mellitus with diabetic polyneuropathy; Z79.02 Long term (current) use of antithrombotics/antiplatelets; Z79.82 Long term (current) use of aspirin; Z87.891 Personal history of nicotine dependence; Z88.8 Allergy status to other drugs, medicaments and biological substances
CPT/HCPCS: J0696; J1644; J7030

== ENCOUNTER 2019-03-31 10:03 | Outpatient (CLI) | payer MEDICARE, OTHER ==
[~2019-03-31] VITALS: Ht 167.6 cm; Wt 94.9 kg
[2019-03-31] MEDS ORDERED: FOLIC ACID 11 MG/TA1 PO (10:35)
[2019-03-31 10:40] VITALS: BP 141/57; PULSE 91; TEMP 97.8
== END 2019-03-31 10:41 | disposition home or self-care (01) ==
LOC: EUO 10:03
DX: M85.80 Other specified disorders of bone density and structure, unspecified site (principal)
CPT/HCPCS: J0897

== ENCOUNTER → 2019-07-29 | Outpatient (CLI) | payer MEDICARE, OTHER | LOC: ZCOL.LAB 10:12 | DX: Z03.818 Encounter for observation for suspected exposure to other biological agents ruled out (principal) ==

== ENCOUNTER 2020-06-01 18:40 | Inpatient (IN) | payer MEDICARE, OTHER ==
[~2020-06-01] VITALS: Ht 167.6 cm; Wt 97.7 kg
[2020-06-02] MEDS ORDERED: NORCO 325 MG-51 TAB PO (00:10)
[2020-06-02 00:24] VITALS: BP 113/50; PULSE 80; TEMP 98.3
--- NOTE | 2020-06-02 00:41 | NUR ---
5558-PT ADMIT FROM ER PER CART. SLIDE BOARD USED TO TRANSFER. NOT ORIENTATED TO SELF ONLY. PT GROGGY WILL WAKE BRIEFLY TO TALK AND THEN FALLS BACK ASLEEP DURING ASSESSMENT. DR ZAVALA CALLED FOR ORDERS, HE IS IN [employer] PLACING ORDERS. IV TO RT AC. LT ARM RESTRICTION, BANDED. PT IS A FALL RISK HAS HAD SEVERAL LAST IN LAST WEEK PER REPORT FROM ER NURSE. ROYA TO BECCA. BED IN LOW POSTION, CALL LIGHT W IN REACH. BED ALARM ON.
--- NOTE | 2020-06-02 04:21 | NUR ---
PT HAS BEEN RESTING W EYES CLOSED THROUGH OUT NIGHT. RESP EVEN AND UNLABORED.
[2020-06-02 05:19] VITALS: BP 111/50; PULSE 80; TEMP 97.9
--- NOTE | 2020-06-02 05:49 | NUR ---
PT AWAKE AND WANTING TO WATCH TV. SETTING UP IN BED, CALL LIGHT WI REACH.
[2020-06-02 08:29] LABS: COLLECTION METHOD CLEAN CATCH
[2020-06-02 09:04] VITALS: BP 148/58; PULSE 88; TEMP 98
--- NOTE | 2020-06-02 09:29 | NUR ---
Pt assessment complete. Pt is sitting up in bed upon entry, she is alert. Oriented to place and person but thinks its Rob. Reports mouth pain, some back pain, PRN Tylenol administered. Pt's breathing is even and unlabored on 3L O2 via NC. Pt denies SOB at this time. Attempting to order breakfast, currently NPO. Discussed with pt POC. No needs at this time. Call light within reach.
--- NOTE | 2020-06-02 10:07 | NUR ---
Initial visit; Patient confused, thanked Career Advisor for finding a nurse for her so she could order breakfast.
[2020-06-02 10:44] LABS: TRICYCLIC ANTIDEPRESS URINE NEGATIVE
[2020-06-02 10:45] LABS: PH 5 (5-8); URINE APPEARANCE Hazy; URINE COLOR Yellow; URINE GLUCOSE Negative (NEGATIVE); URINE PROTEIN(semi-quant) 2+ (NEGATIVE)
[2020-06-02 10:46] LABS: MUCOUS Present /lpf; URINE BACTERIA None Seen /hpf; URINE BILIRUBIN Negative (NEGATIVE); URINE BLOOD 2+ (NEGATIVE); URINE KETONE Negative (NEGATIVE); URINE LEUKOCYTE ESTERASE Trace (NEGATIVE); URINE NITRATE Negative (NEGATIVE); URINE UROBILINOGEN Negative (NEGATIVE)
[2020-06-02 10:50] LABS: TROPONIN-I 1.44 ng/mL (0.000-0.035)
[2020-06-02 10:51] LABS: CALCIUM 9.3 mg/dL (8.4-10.2); CREATININE, serum 7.11 (0.52-1.25); POTASSIUM 5.5 mmol/L (3.4-5.0)
[2020-06-02 10:52] LABS: ALBUMIN 4.5 gm/dL (3.5-5.0); TOTAL PROTEIN 7.6 gm/dL (6.4-8.2)
[2020-06-02 12:13] LABS: BASO # 0.1 (0.0-0.2); BASO % 0.4 % (0.0-2.0); EOS # 0.1 (0.0-0.7); EOS % 0.3 % (0-4.0); GRAN % 83.7 % (42.2-75.2); HEMOGLOBIN 11.6 g/dl (12.5-16.0); LYMPH # 1.5 (1.2-3.4); LYMPH % 8.1 % (20.0-51.0); MEAN CELL VOLUME 109 fl (80.0-100.0); MEAN CORPUSCULAR HEMOGLOBIN 33 pg (27.0-31.0); MEAN CORPUSCULAR HGB CONC 31 g/dl (33.0-37.0); MEAN PLATELET VOLUME 11.2 fl (7.4-10.4); MONO # 1.2 (0.1-0.6); MONO % 6.6 % (1.7-9.3); PLATELET COUNT 194 K/mm3 (130-400); REDCELL DISTRIBUTION WIDTH-CV 13.6 % (11.5-14.5)
--- NOTE | 2020-06-02 12:27 | NUR ---
Pt down to dialysis at this time.
[2020-06-02 13:14] LABS: BASO # 0.1 (0.0-0.2); BASO % 0.7 % (0.0-2.0); EOS # 0.3 (0.0-0.7); EOS % 2.1 % (0-4.0); GRAN % 80.6 % (42.2-75.2); LYMPH # 1.3 (1.2-3.4); LYMPH % 9.5 % (20.0-51.0); MEAN CELL VOLUME 105 fl (80.0-100.0); MEAN CORPUSCULAR HGB CONC 31 g/dl (33.0-37.0); MEAN PLATELET VOLUME 11.3 fl (7.4-10.4); MONO # 0.9 (0.1-0.6); MONO % 6.2 % (1.7-9.3); PLATELET COUNT 163 K/mm3 (130-400); RED BLOOD COUNT 3.01 M/mm3 (4.10-5.30); REDCELL DISTRIBUTION WIDTH-CV 13.3 % (11.5-14.5)
[2020-06-02 13:16] LABS: HEMATOCRIT 31.6 % (37.0-47.0); HEMOGLOBIN 9.8 g/dl (12.5-16.0); MEAN CORPUSCULAR HEMOGLOBIN 33 pg (27.0-31.0)
[2020-06-02 13:35] LABS: ALBUMIN 3.5 gm/dL (3.5-5.0); CALCIUM 8.7 mg/dL (8.4-10.2); CREATININE, serum 7.42 (0.52-1.25); PHOSPHOROUS 5.3 mg/dL (2.5-4.5); POTASSIUM 4.8 mmol/L (3.4-5.0)
--- NOTE | 2020-06-02 15:18 | NUR ---
Bench Assembly Inspector was not able to meet with patient as she was in dialysis. SW contacted patient's DPOA-HC/Brother, Codey (ph#[phone]) to discuss discharge planning. Patient lives alone in [place] and Codey reports he also lives in [facility]. Patient sees Dr. Dunlap for primary care and either uses [facility] or [facility] for her medications. Codey advised patient was recently set up at [facility] in case he ever needed to oyster picker medications for patient. Codey advised that patient has two walkers, one for home and one for out in the community. Patient is normally independent with ADLS although Codey reports she has her slower days. Patient has dialysis MWF and drives herself to these appointments. Patient has DPOA-HC paperwork in EMR which designates Codey. Codey advised patient will likely return home but he wants to ensure she is steady on her feet. Codey reports he has been talking with patient about Home Health services but isn't sure what agency she would want. SW will follow up with patient about HH.
--- NOTE | 2020-06-02 16:44 | NUR ---
Patient tolerated HD tx today, removed 2.5 L of fluid. Next HD tx planned for Saturday06/04/20 @ 0800.
[2020-06-02 16:48] VITALS: BP 151/60; PULSE 889; TEMP 97.8
--- NOTE | 2020-06-02 19:23 | NUR ---
Pt had dialysis today. Tolerated well. Remained alert and oriented. Adriano HUDSON. No needs at this time. Call light within reach.
--- NOTE | 2020-06-02 19:30 | NUR ---
RECEIVED CHANGE OF SHIFT REPORT FROM DAY SHIFT NURSE.
[2020-06-02 20:08] VITALS: BP 130/55; PULSE 112; TEMP 98.4
[2020-06-02 20:41] VITALS: BP 91/45; PULSE 83; TEMP 97.9
--- NOTE | 2020-06-02 22:00 | NUR ---
UP WITH X1 ASST WITH AMBULATION TO BATHROOM, USING WALKER. DENIES ANY DISCOMFORT AT THIS TIME. IV SITE INTACT, IV ABX INFUSING WITH NO PROBLEMS. PRYOR IN PLACE AND DRAINING WITH NO PROBLEMS OF MEDIUM NAS WITH SEDIMENT, NO CLOTS OBSERVED AT THIS TIME.
[2020-06-03 04:20] VITALS: BP 123/66; PULSE 76; TEMP 97.7
[2020-06-03 06:29] LABS: ALBUMIN 3.3 gm/dL (3.5-5.0); CALCIUM 8.6 mg/dL (8.4-10.2); CREATININE, serum 4.57 (0.52-1.25); PHOSPHOROUS 4.4 mg/dL (2.5-4.5); POTASSIUM 4.5 mmol/L (3.4-5.0)
[2020-06-03 07:02] LABS: GRAN % 77.1 % (42.2-75.2); HEMATOCRIT 31.5 % (37.0-47.0); HEMOGLOBIN 9.9 g/dl (12.5-16.0); MEAN CELL VOLUME 104 fl (80.0-100.0); MEAN CORPUSCULAR HEMOGLOBIN 33 pg (27.0-31.0); MEAN CORPUSCULAR HGB CONC 31 g/dl (33.0-37.0); MEAN PLATELET VOLUME 11.2 fl (7.4-10.4); PLATELET COUNT 150 K/mm3 (130-400); RED BLOOD COUNT 3.02 M/mm3 (4.10-5.30); REDCELL DISTRIBUTION WIDTH-CV 13.2 % (11.5-14.5)
[2020-06-03 07:03] LABS: BASO % 0.6 % (0.0-2.0); EOS # 0.5 (0.0-0.7); EOS % 3.9 % (0-4.0); GRAN # 9.2 (1.4-6.5); LYMPH # 1.2 (1.2-3.4); LYMPH % 10.4 % (20.0-51.0); MONO # 0.9 (0.1-0.6); MONO % 7.3 % (1.7-9.3)
--- NOTE | 2020-06-03 07:06 | NUR ---
CHANGE OF SHIFT REPORT GIVEN TO DAY SHIFT NURSE, MEL MADRIGAL.
[2020-06-03 07:43] VITALS: BP 135/58; PULSE 59; TEMP 97.6
--- NOTE | 2020-06-03 08:10 | NUR ---
Pt assessment complete. Pt sleeping in bed. She arouses to voice. Shes is A/O. She denies pain this am. No N/V. Adriano HUDSON. Pt has dialysis this AM, medications held until after. No needs at this time. Call light within reach.
[2020-06-03 13:08] VITALS: BP 147/53; PULSE 81; TEMP 97.5
--- NOTE | 2020-06-03 16:03 | NUR ---
Engineering Instructor met with the patient to review the discharge plan. The patient plans to return home when able. TIFFANI followed up with home health list of agencies from [employer]. She has had [facility] in the past and chose them. TIFFANI faxed referral. TIFFANI contacted [facility] and they will be able to accept the patient and likely will be able to start services on Saturday, 06/06. TIFFANI collaborated the above information with the patient's nurse.
[2020-06-03 17:07] VITALS: BP 137/36; PULSE 90; TEMP 97.9
[2020-06-03 18:57] VITALS: BP 146/40; PULSE 87; TEMP 97.8
--- NOTE | 2020-06-03 19:10 | NUR ---
Pt had dialysis today. No complaints or concerns. Adriano Johnson. Pt had hard BM today. Anxious to discharge tomorrow. No needs at this time.
--- NOTE | 2020-06-03 19:21 | NUR ---
RECEIVED CHANGE OF SHIFT REPORT FROM DAY SHIFT NURSE.
--- NOTE | 2020-06-03 19:50 | NUR ---
UP WITH WALKER. DENIES CHEST PAIN/SHORTNESS OF BREATH. ENCOURAGED PATIENT TO C&DB EVERY HOUR WHEN AWAKE. O2 PER OXYGEN IN PLACE PER NC AT THIS TIME.
[2020-06-03 23:12] VITALS: BP 150/47; PULSE 88; TEMP 98
[2020-06-04 03:55] VITALS: BP 147/55; PULSE 74; TEMP 97.6
--- NOTE | 2020-06-04 07:53 | NUR ---
CHANGE OF SHIFT REPORT GIVEN TO DAY SHIFT NURSE, AMAURY MADRIGAL.
[2020-06-04 08:07] LABS: BASO # 0.1 (0.0-0.2); BASO % 0.8 % (0.0-2.0); EOS # 0.5 (0.0-0.7); EOS % 4.8 % (0-4.0); GRAN # 6.9 (1.4-6.5); GRAN % 70.7 % (42.2-75.2); HEMOGLOBIN 10.6 g/dl (12.5-16.0); LYMPH # 1.4 (1.2-3.4); LYMPH % 14.3 % (20.0-51.0); MEAN CELL VOLUME 105 fl (80.0-100.0); MEAN CORPUSCULAR HEMOGLOBIN 33 pg (27.0-31.0); MEAN CORPUSCULAR HGB CONC 32 g/dl (33.0-37.0); MEAN PLATELET VOLUME 11.6 fl (7.4-10.4); MONO # 0.8 (0.1-0.6); MONO % 8.6 % (1.7-9.3); PLATELET COUNT 165 K/mm3 (130-400); RED BLOOD COUNT 3.19 M/mm3 (4.10-5.30); REDCELL DISTRIBUTION WIDTH-CV 13.3 % (11.5-14.5)
[2020-06-04 08:12] LABS: HEMATOCRIT 33.6 % (37.0-47.0)
[2020-06-04 08:17] LABS: ALBUMIN 3.5 gm/dL (3.5-5.0); CALCIUM 8.9 mg/dL (8.4-10.2); CREATININE, serum 3.97 (0.52-1.25); PHOSPHOROUS 4.3 mg/dL (2.5-4.5); POTASSIUM 4.1 mmol/L (3.4-5.0)
--- NOTE | 2020-06-04 08:49 | NUR ---
Assessment complete. Patient sitting up in bed, just finished breakfast. States she feels pretty good. She was up and ambulated to the restroom with walker and did well independently. Patient then brshed her teeth and freshsed up at sink in room. No complaints of pain or discomfort were expressed. wound on left food visualized, it is closed, CD&I. PAtient is aware of her POC at this time. Will continue to monitor. Call light is in reach.
[2020-06-04 08:55] VITALS: BP 148/55; PULSE 78; TEMP 98.3
[2020-06-04 11:09] VITALS: BP 149/57; PULSE 80; TEMP 97.6
[2020-06-04 16:00] VITALS: BP 146/66; PULSE 82; TEMP 98.1
--- NOTE | 2020-06-04 17:40 | NUR ---
Patient has had a good day. No complaints of pain or discomfort were expressed through the day. Patient was up to the restroom multiple times and showered as well. New mepilex was applied to pencil head sized ulcer, that is scabbed, on the inside of the patients left butt cheek. IV site remains CD&I. No other needs were expressed at this time. Will continue to montior. Call light is in reach.
[2020-06-04 21:18] VITALS: BP 189/66; PULSE 92; TEMP 98.2
--- NOTE | 2020-06-04 22:21 | NUR ---
PATIENT WAS RECEIVED FAIR IN BED.DUE MEDS GIVEN ASSESSMENT DONE.REPORTS OF MOUTH SORENESS TYLENOL GIVEN.ON O2 VIA NC.NO OTHER NEEDS AT THIS TIME.
[2020-06-05] VITALS (7 sets, daily range): BP systolic 126–162; BP diastolic 51–70; PULSE 72–83; TEMP 97.6–98.1
--- NOTE | 2020-06-05 05:00 | NUR ---
PATIENT HAD A GOOD NIGHT,ON O2 VIA NC AT 1L SATTING ABOVE 90%.DENIES PAIN ,NO OTHER NEEDS AT THIS TIME.
[2020-06-05 06:51] LABS: ALBUMIN 3.5 gm/dL (3.5-5.0); CREATININE, serum 4.98 (0.52-1.25); PHOSPHOROUS 4.3 mg/dL (2.5-4.5); POTASSIUM 4.3 mmol/L (3.4-5.0)
[2020-06-05 06:57] LABS: BASO # 0.1 (0.0-0.2); BASO % 0.9 % (0.0-2.0); EOS # 0.5 (0.0-0.7); GRAN # 6.7 (1.4-6.5); GRAN % 68.7 % (42.2-75.2); HEMOGLOBIN 10.5 g/dl (12.5-16.0); LYMPH # 1.5 (1.2-3.4); LYMPH % 15.8 % (20.0-51.0); MEAN CELL VOLUME 104 fl (80.0-100.0); MEAN CORPUSCULAR HEMOGLOBIN 33 pg (27.0-31.0); MEAN CORPUSCULAR HGB CONC 32 g/dl (33.0-37.0); MEAN PLATELET VOLUME 11.4 fl (7.4-10.4); MONO # 0.8 (0.1-0.6); MONO % 8.4 % (1.7-9.3); PLATELET COUNT 186 K/mm3 (130-400); RED BLOOD COUNT 3.17 M/mm3 (4.10-5.30); REDCELL DISTRIBUTION WIDTH-CV 13.2 % (11.5-14.5)
[2020-06-05 07:44] LABS: HEMATOCRIT 33.1 % (37.0-47.0)
--- NOTE | 2020-06-05 09:10 | NUR ---
Assessment complete. Patient sitting up in bed awake, alert and oriented at this time. Reports some pain in her mouth from dental surgery, PRN tylenol was provided for this. Patient has ambulated to restroom and with PT in halls this morning and did well. IV site remains CD&I at this time. Patient is aware of her POC and is waiting to speak with Dr. Ferrara. Needs were met at this time. PAtient denies other needs. call light is in reach.
--- NOTE | 2020-06-05 13:20 | NUR ---
Spoke with Dr. Ferrara regarding pts Zosyn as her IV came out and patient questioned whether it was necessary that she get a new IV. He assessed her condition at this time and I informed him that patient was ambulating well and even stated she was getting anxious waiting in the room. He continued to state that I could "hold off" on the IV and the zosyn until he assesses the patient later today. Patient is aware. Will continue to monitor. Call light is in reach.
--- NOTE | 2020-06-05 17:20 | NUR ---
Patient has had an uneventful shift. She has begun ambulating in room to restroom ect. on her own with walker as she has been doing very well and not requiring help or assistance. Patient was informed to request help if feeling weak or unsteady before ambulating, she agreed. Will continue to [facility]. Call light is in reach.
--- NOTE | 2020-06-05 20:00 | NUR ---
Patient awake in bed. She is on room air, no IV and not on tele. She denies pain. Assesment done. Denies any needs at this time. Call light within reach.
[2020-06-06 03:46] VITALS: BP 158/61; PULSE 77; TEMP 97.7
--- NOTE | 2020-06-06 06:03 | NUR ---
Patient had uneventful night. She denies pain. She has been asleep most of the night. Walker on the bedside. Call light within reach.
[2020-06-06 06:24] LABS: BASO # 0.1 (0.0-0.2); BASO % 0.7 % (0.0-2.0); EOS # 0.5 (0.0-0.7); EOS % 4.7 % (0-4.0); GRAN % 75.3 % (42.2-75.2); HEMOGLOBIN 10.5 g/dl (12.5-16.0); LYMPH # 1.3 (1.2-3.4); LYMPH % 11.9 % (20.0-51.0); MEAN CELL VOLUME 104 fl (80.0-100.0); MEAN CORPUSCULAR HEMOGLOBIN 33 pg (27.0-31.0); MEAN CORPUSCULAR HGB CONC 31 g/dl (33.0-37.0); MEAN PLATELET VOLUME 11.2 fl (7.4-10.4); MONO # 0.7 (0.1-0.6); MONO % 6.7 % (1.7-9.3); PLATELET COUNT 200 K/mm3 (130-400); RED BLOOD COUNT 3.22 M/mm3 (4.10-5.30); REDCELL DISTRIBUTION WIDTH-CV 13.4 % (11.5-14.5)
[2020-06-06 06:33] LABS: ALBUMIN 3.6 gm/dL (3.5-5.0); CALCIUM 9.4 mg/dL (8.4-10.2); CREATININE, serum 6.17 (0.52-1.25); HEMATOCRIT 33.4 % (37.0-47.0); PHOSPHOROUS 4.1 mg/dL (2.5-4.5); POTASSIUM 4.3 mmol/L (3.4-5.0)
--- NOTE | 2020-06-06 06:40 | NUR ---
Report received from KAITLIN Britton. Pt standing at sink washing face. Denies needs at this time. Continuing to monitor.
--- NOTE | 2020-06-06 08:00 | NUR ---
Shift assessment complete. Pt sitting up in bed. A&Ox4. Heart RRR. Lungs CTA. Denies pain or SOA. Remains on RA. Denies any needs at this time. Continuing to monitor.
--- NOTE | 2020-06-06 08:18 | NUR ---
Pt down to dialysis by WC at this time.
[2020-06-06 12:23] VITALS: BP 146/93; PULSE 93; TEMP 97.5
--- NOTE | 2020-06-06 13:05 | NUR ---
Discharge instructions discussed with pt and all questions answered. No IV access at time of d/c. Pt accompanied by PLAY WRITER and son, taken down to parking lot via wheelchair.
--- NOTE | 2020-06-06 15:13 | NUR ---
The patient discharged back home today, 06/06, with home health services for snf/PT/OT through [facility]. SW notified and faxed d/c orders to Yuki at [facility]. No additional needs at this time.
== END 2020-06-06 13:05 | disposition home health service (06) | DRG 947 ==
LOC: COL.ER 18:40 → MEDICAL 22:40
PROVIDERS: ADMIT Internal Medicine Nephrology
PROC: 5A1D70Z Performance of Urinary Filtration, Intermittent, Less than 6 Hours Per Day (ICD-10-PCS; principal; 2020-06-02)
DX: R41.82 Altered mental status, unspecified (principal); N18.6 End stage renal disease; I12.0 Hypertensive chronic kidney disease with stage 5 chronic kidney disease or end stage renal disease; E11.22 Type 2 diabetes mellitus with diabetic chronic kidney disease; D63.1 Anemia in chronic kidney disease; E11.51 Type 2 diabetes mellitus with diabetic peripheral angiopathy without gangrene; E11.621 Type 2 diabetes mellitus with foot ulcer; L89.159 Pressure ulcer of sacral region, unspecified stage; Z20.822 Contact with and (suspected) exposure to COVID-19; L97.529 Non-pressure chronic ulcer of other part of left foot with unspecified severity; D72.829 Elevated white blood cell count, unspecified; M10.9 Gout, unspecified; E11.40 Type 2 diabetes mellitus with diabetic neuropathy, unspecified; E55.9 Vitamin D deficiency, unspecified; E78.5 Hyperlipidemia, unspecified; R29.6 Repeated falls; Z79.82 Long term (current) use of aspirin; Z79.891 Long term (current) use of opiate analgesic; Z99.2 Dependence on renal dialysis; Z87.891 Personal history of nicotine dependence; Z88.3 Allergy status to other anti-infective agents
CPT/HCPCS: J1644; J2310; J2543; J2916; J7030; Q5105

== ENCOUNTER → 2020-12-27 | Outpatient (CLI) | payer MEDICARE, OTHER ==
[~2020-12-27] MED LIST changes: +NORCO 325 MG-51 TAB PO
== END ==
LOC: COL.VAS 12:09
DX: I63.231 Cerebral infarction due to unspecified occlusion or stenosis of right carotid arteries (principal)

== ENCOUNTER 2021-06-01 11:28 | Outpatient (CLI) | payer MEDICARE, OTHER ==
[~2021-06-01] VITALS: Ht 167.7 cm; Wt 96.9 kg
[2021-06-01] VITALS (9 sets, daily range): BP systolic 148–174; BP diastolic 58–76; PULSE 70–76; TEMP 97.9
[2021-06-01] MEDS ORDERED: PLAVIX 75MG TAB75 MG PO (12:05)
[2021-06-01] MEDS ORDERED: TYLENOL 500MG500 MG PO (12:06)
[2021-06-01] MEDS ORDERED: NATURE'S BLEND100 M2 PO (12:07)
--- NOTE | 2021-06-01 13:43 | NUR ---
SEE MERGE FOR ALL MEDICATION ADMINISTRATION TIMES/DOSAGES AND INTRA/POST PROCEDURE SEDATION ASSESSMENTS.
--- NOTE | 2021-06-01 16:30 | NUR ---
DC instructions reviewed with pt. She express understanding. Strong thrill palpated with each post-procedure check. Dressing to left upper arm fistula site remains clean, dry and intact. INT DC'd with catheter intact. Pt is able to transfer from bed, walk a few steps to wheelchair at time of discharge using countertop to steady herself. She has tolerated PO without issue. She is assisted out to brother's car by wheelchair.
== END 2021-06-01 16:30 | disposition home or self-care (01) ==
LOC: COL.CAR 11:28
DX: T82.858A Stenosis of other vascular prosthetic devices, implants and grafts, initial encounter (principal); N18.6 End stage renal disease; I51.9 Heart disease, unspecified; Z79.82 Long term (current) use of aspirin; Z99.2 Dependence on renal dialysis; Z79.899 Other long term (current) drug therapy; Z79.02 Long term (current) use of antithrombotics/antiplatelets
CPT/HCPCS: J1644; J2250; J3010; Q9967

== ENCOUNTER 2021-10-16 16:36 | Emergency (ER) | payer MEDICARE, OTHER ==
[~2021-10-16] VITALS: Ht 170.2 cm; Wt 93.6 kg
[~2021-10-16 16:36] MED LIST changes: +NATURE'S BLEND100 M2 PO; +TYLENOL 500MG500 MG PO
[2021-10-16 18:31] LABS: CALCIUM 9.6 mg/dL (8.4-10.2); CREATININE, serum 6.09 mg/dL (0.57-1.11); POTASSIUM 4.4 mmol/L (3.5-4.5)
[2021-10-16 19:21] VITALS: BP 172/94; PULSE 75
== END 2021-10-16 19:23 | disposition home or self-care (01) ==
LOC: COL.ER 16:36
PROVIDERS: Nurse Practitioner
DX: S86.812A Strain of other muscle(s) and tendon(s) at lower leg level, left leg, initial encounter (principal); I12.0 Hypertensive chronic kidney disease with stage 5 chronic kidney disease or end stage renal disease; N18.6 End stage renal disease; Z99.2 Dependence on renal dialysis; Z87.891 Personal history of nicotine dependence; W18.39XA Other fall on same level, initial encounter

== ENCOUNTER → 2021-11-15 | Outpatient (CLI) | payer MEDICARE, OTHER ==
[2021-11-15 13:00] LABS: POTASSIUM 3.7 mmol/L (3.5-4.5)
[2021-11-15 14:06] LABS: TROPONIN-I 0.034 ng/mL (0.00-0.033)
== END ==
LOC: ZCOL.LAB 12:53
PROVIDERS: Physician Assistant Medical
DX: R09.02 Hypoxemia (principal)

== ENCOUNTER 2021-11-17 08:53 | Emergency (ER) | payer MEDICARE, OTHER ==
[~2021-11-17] VITALS: Ht 17.8 cm; Wt 91.8 kg
[2021-11-17 08:56] VITALS: TEMP 97.6
[2021-11-17 09:26] LABS: BASO # 0.1 K/mm3 (0.0-0.2); BASO % 0.7 % (0.0-2.0); EOS # 0.3 K/mm3 (0.0-0.7); EOS % 2.5 % (0.0-4.0); GRAN # 10.5 K/mm3 (1.4-6.5); GRAN % 85.8 % (42.2-75.2); HEMATOCRIT 41.1 % (37.0-47.0); HEMOGLOBIN 12.9 g/dl (12.5-16.0); LYMPH # 0.7 K/mm3 (1.2-3.4); LYMPH % 5.6 % (20.0-51.0); MEAN CELL VOLUME 108 fl (80.0-100.0); MEAN CORPUSCULAR HEMOGLOBIN 34 pg (27-31); MEAN CORPUSCULAR HGB CONC 31 g/dl (33.0-37.0); MEAN PLATELET VOLUME 11.8 fl (7.4-10.4); MONO # 0.6 K/mm3 (0.1-0.6); MONO % 4.9 % (1.7-9.3); PLATELET COUNT 111 K/mm3 (130-400); RED BLOOD COUNT 3.81 M/mm3 (4.10-5.30); REDCELL DISTRIBUTION WIDTH-CV 14.6 % (11.5-14.5)
[2021-11-17 09:42] LABS: ALBUMIN 3.4 gm/dL (3.4-4.8); BILIRUBIN,TOTAL 1.5 mg/dL (0.2-1.2); CALCIUM 9.4 mg/dL (8.4-10.2); CREATININE, serum 2.99 mg/dL (0.57-1.11); POTASSIUM 4.1 mmol/L (3.5-4.5); TOTAL PROTEIN 7.3 gm/dL (6.2-8.1)
[2021-11-17 09:50] LABS: TROPONIN-I 0.04 ng/mL (0.00-0.033)
[2021-11-17 13:07] VITALS: BP 144/60; PULSE 72
== END 2021-11-17 13:15 | disposition home or self-care (01) ==
LOC: COL.ER 08:53
PROVIDERS: Emergency Medicine
DX: J96.90 Respiratory failure, unspecified, unspecified whether with hypoxia or hypercapnia (principal); I12.0 Hypertensive chronic kidney disease with stage 5 chronic kidney disease or end stage renal disease; N18.6 End stage renal disease; I31.3 Pericardial effusion (noninflammatory); I51.7 Cardiomegaly; Z20.822 Contact with and (suspected) exposure to COVID-19; Z99.81 Dependence on supplemental oxygen; Z99.2 Dependence on renal dialysis
CPT/HCPCS: Q9967

== ENCOUNTER 2021-11-27 17:13 | Emergency (ER) | payer MEDICARE, OTHER ==
[~2021-11-27] VITALS: Ht 170.2 cm; Wt 93.2 kg
[2021-11-27 17:15] VITALS: TEMP 97.1
[2021-11-27 17:48] LABS: ARTERIAL BLD GAS O2 SATURATION 92.8 % (92-100); ARTERIAL BLD GAS TCO2 CT 28.2; ARTERIAL BLOOD GAS BASE EXCESS 0.6 (-2-2); ARTERIAL BLOOD GAS HCO3 26.7 meq/L (22-26); ARTERIAL BLOOD GAS PCO2 49.2 mmHg (35-45); ARTERIAL BLOOD GAS PO2 66.5 mmHg (80-100); ARTERIAL BLOOD GAS pH 7.35 (7.35-7.45)
[2021-11-27 17:55] LABS: BASO # 0.1 K/mm3 (0.0-0.2); BASO % 0.8 % (0.0-2.0); EOS # 0.3 K/mm3 (0.0-0.7); EOS % 3.8 % (0.0-4.0); GRAN # 7.1 K/mm3 (1.4-6.5); GRAN % 79.5 % (42.2-75.2); HEMATOCRIT 37.1 % (37.0-47.0); HEMOGLOBIN 11.4 g/dl (12.5-16.0); LYMPH # 0.8 K/mm3 (1.2-3.4); LYMPH % 8.4 % (20.0-51.0); MEAN CELL VOLUME 109 fl (80.0-100.0); MEAN CORPUSCULAR HEMOGLOBIN 34 pg (27-31); MEAN CORPUSCULAR HGB CONC 31 g/dl (33.0-37.0); MEAN PLATELET VOLUME 12.2 fl (7.4-10.4); MONO # 0.6 K/mm3 (0.1-0.6); MONO % 7.2 % (1.7-9.3); PLATELET COUNT 129 K/mm3 (130-400); REDCELL DISTRIBUTION WIDTH-CV 13.7 % (11.5-14.5)
[2021-11-27 18:13] LABS: ALBUMIN 3.3 gm/dL (3.4-4.8); BILIRUBIN,TOTAL 0.9 mg/dL (0.2-1.2); CALCIUM 9.3 mg/dL (8.4-10.2); CREATININE, serum 3.68 mg/dL (0.57-1.11); POTASSIUM 4.5 mmol/L (3.5-4.5); TOTAL PROTEIN 7.1 gm/dL (6.2-8.1)
[2021-11-27 18:20] LABS: TROPONIN-I 0.046 ng/mL (0.00-0.033)
[2021-11-27 20:17] LABS: COLLECTION METHOD CLEAN CATCH
[2021-11-27 21:00] LABS: URINE APPEARANCE Clear (CLEAR/HAZY); URINE COLOR Yellow (YELLOW); URINE PROTEIN(semi-quant) Negative (NEGATIVE)
[2021-11-27 21:01] LABS: URINE BLOOD 3+ (NEGATIVE); URINE GLUCOSE Negative (NEGATIVE); URINE KETONE Negative (NEGATIVE); URINE NITRATE Negative (NEGATIVE); URINE UROBILINOGEN 0.2 E.U/dL (0.2-1.0)
[2021-11-27 21:08] LABS: MUCOUS Present (NOT PRESENT); URINE RBC >50 /hpf (0-2)
[2021-11-27] MEDS ORDERED: CEPHALEXIN500 M1 PO (21:15)
[2021-11-27 21:54] VITALS: BP 158/98; PULSE 79
[2021-11-29] MEDS ORDERED: [UNRECOGNIZED DRUG - CODE] PO (14:31)
[2021-12-01] MEDS ORDERED: REGLAN 5MG T5 MG/TAB PO (11:42)
== END 2021-11-27 21:54 | disposition home or self-care (01) ==
LOC: COL.ER 17:13
PROVIDERS: Nurse Practitioner Primary Care
DX: I50.9 Heart failure, unspecified (principal); N39.0 Urinary tract infection, site not specified; N18.6 End stage renal disease; I25.2 Old myocardial infarction; Z95.5 Presence of coronary angioplasty implant and graft; Z99.2 Dependence on renal dialysis; Z99.81 Dependence on supplemental oxygen